=== PATIENT | female | born 1970 | race Caucasian/White ===

== ENCOUNTER 2021-04-25 17:27 | Inpatient (IN) | payer OTHER, SELFPAY ==
[2021-04-25] VITALS (16 sets, daily range): BP systolic 62–109; BP diastolic 23–66; PULSE 112–133; RESP 24–36; TEMP 40.4–41; O2SAT 88–94; BMI 95.7
--- NOTE | ~2021-04-25 | CT_ITS ---
EXAMINATION: CT brain wo con DATE: 04/25/2021 18:54 INDICATION: Cardiac arrest TECHNIQUE: Computed tomography (CT) of the head was performed without intravenous contrast. Sagittal and coronal reconstructions were performed. The mA was adjusted according to patient size. Iterative reconstruction technique was employed. The dose-length product was 756.67 mGy-cm. COMPARISON: None FINDINGS: No acute intracranial hemorrhage or abnormal extra axial fluid collection. Ventricles are normal and symmetric. There appears to be edema at the cerebellum and in the posterior aspect of the cerebellar hemispheres where there is effacement of the sulci and effacement of the prepontine cistern. There is also disproportionate relative enlargement of the lateral and third ventricles in comparison to the fourth ventricle which may be related to compression of the third ventricle. There is loss of olivia-wh ite matter differentiation in the bilateral parieto-occipital regions. Findings are concerning for in farct or anoxic brain injury involving primarily the posterior circulation. No abnormal masses identi fied. Posterior layering fluid in the bilateral maxillary and sphenoid sinuses. Bilateral orbits and mastoids are normal. Endotracheal tube and orogastric tube extends through the oropharynx. IMPRESSION: 1. Suggestion of cytotoxic edema in the posterior circulation vascular distribution involving the john paul ateral cerebellar hemispheres and lateral parieto-occipital lobes consistent with acute infarct which could be either embolic or hypotensive in etiology. This results in effacement of the CSF spaces in the posterior fossa surrounding the cerebellum and brainstem. Dr. Mari discussed these findings w karen Lopez at 7:05 PM. 2. The lateral and third ventricles are relatively enlarged relative to the fourth ventricle which un clear whether this is due to enlargement of the ventricles and the setting of obstructive hydrocephal us, compression of the fourth ventricle from the surrounding mass effect or combination thereof. Reviewed, dictated and finalized at location A. IMPRESSION: 1. Suggestion of cytotoxic edema in the posterior circulation vascular distribu tion involving the bilateral cerebellar hemispheres and lateral parieto-occipit al lobes consistent with acute infarct which could be either embolic or hypoten sive in etiology. This results in effacement of the CSF spaces in the posterior fossa surrounding the cerebellum and brainstem. Dr. Mari discussed these f indings with Dr. Lopez at 7:05 PM. 2. The lateral and third ventricles are relatively enlarged relative to the fou rth ventricle which unclear whether this is due to enlargement of the ventricle s and the setting of obstructive hydrocephalus, compression of the fourth ventr icle from the surrounding mass effect or combination thereof.
--- NOTE | ~2021-04-25 | XR_ITS ---
EXAMINATION: XR abdomen/kub 1V, XR chest ET placement DATE: 04/25/2021 18:08 INDICATION: Endotracheal tube placement Abdominal distention TECHNIQUE: 1. Supine AP view of the chest was obtained. 2. Supine AP view of the abdomen on 4 radiographs was obtained. COMPARISON: None. FINDINGS: Chest: Endotracheal tube tip 3.6 cm above the adelso. Right subclavian central venous catheter with distal t ip near the superior cavoatrial junction. Cardiomegaly with pulmonary vascular congestion. Bilateral perihilar and lower lung predominant airspace opacities. No pneumothorax or definitive pleural effusi on. ABDOMEN: Nasogastric tube tip in proximal side port in the body of the stomach. Right femoral central venous c atheter with distal tip projecting over the right common iliac vein. Left internal ureteral stent whi ch appears in expected position with loops formed in expected location of the left renal pelvis and b ladder. Gates catheter with temperature probe also projects over the region of the bladder. There is gas scattered throughout multiple loops of small bowel which are not frankly dilated. Some g as and stool also scattered throughout the colon. Instrumented posterior spinal fusion extending from the upper thoracic through the mid lumbar spine. There is also been a prior lower lumbar anterior sp inal fusion with graft cages and a couple levels. IMPRESSION: 1. Lines and tubes in expected positions as detailed above. 2. Cardiac megaly with pulmonary vascular congestion and bilateral perihilar and lower lung predomina nt opacities which could represent moderate congestive heart failure related pulmonary edema or pneum onia. 3. Multiple gas-filled but not frankly dilated loops of small bowel which could represent an ileus or early/partial small bowel obstruction. Reviewed, dictated and finalized at location A. IMPRESSION: 1. Lines and tubes in expected positions as detailed above. 2. Cardiac megaly with pulmonary vascular congestion and bilateral perihilar an d lower lung predominant opacities which could represent moderate congestive he art failure related pulmonary edema or pneumonia. 3. Multiple gas-filled but not frankly dilated loops of small bowel which could represent an ileus or early/partial small bowel obstruction.
--- NOTE | ~2021-04-25 | CT_ITS ---
EXAMINATION: CT chest abdomen pelvis wo con DATE: 04/25/2021 18:54 INDICATION: Septic shock. Abdominal distention. TECHNIQUE: Computed tomography (CT) of the chest, abdomen, and pelvis was performed without intraveno us contrast. Automated exposure control and iterative reconstruction technique were employed. The dos e-length product was 2928.22 mGy-cm. COMPARISON: None FINDINGS: CHEST CT: Endotracheal tube tip 5.1 cm above the level of the adelso. Right subclavian central venous catheter with distal tip at the superior cavoatrial junction. Patchy airspace opacities with air bronchograms throughout both lungs with the most extensive consolidation involving the majority of the left lower lobe. No pleural effusion or pneumothorax. Cardiomegaly. Mild atherosclerotic coronary artery calcifi c location. No pericardial effusion. Thoracic aorta is normal in caliber. No pathologically enlarged thoracic lymphadenopathy. Instrumented posterior spinal fusion extending from the upper thoracic to t he mid lumbar spine. ABDOMEN/PELVIS CT: Couple small calcified gallstones within the decompressed gallbladder. Liver, spleen, pancreas and bi lateral adrenal glands are normal. Bilateral nonobstructing renal calculi the largest measuring 1.8 c m at the right kidney. Severe left renal atrophy. Left internal ureteral stent with loops formed in t he left renal pelvis and along with a Gates catheter in the decompressed bladder. There are some scat tered oral contrast material throughout the normal caliber small bowel and colon. No bowel obstructio n. IUD within the anteverted atrophic uterus. Small amount of ascites scattered throughout the abdome n and pelvis. No pathologically enlarged abdominal or pelvic lymphadenopathy. Anterior spinal fusion with bone graft cages at L4-L5 and L5-S1. Right femoral central venous catheter with distal tip at t he proximal most right external iliac vein. Body wall edema at the lateral aspect of the pelvis and p roximal thighs. IMPRESSION: 1. Extensive diffuse bilateral lung disease which could represent pneumonia, pulmonary edema or combi nation thereof. 2. Cardiomegaly. 3. Small amount of nonspecific ascites. 4. Retained IUD within the atrophic uterus. Lines and tubes as detailed above. Reviewed, dictated and finalized at location A. IMPRESSION: 1. Extensive diffuse bilateral lung disease which could represent pneumonia, pu lmonary edema or combination thereof. 2. Cardiomegaly. 3. Small amount of nonspecific ascites. 4. Retained IUD within the atrophic uterus. Lines and tubes as detailed above.
[2021-04-25] MEDS: NOREPINEPHRINE 8 MG/D5W 250 ML 8 MG/250 ML BAG 93.75 MG IV CONT ×3 (15:30→20:47)
--- NOTE | 2021-04-25 15:45 | PM.DDS ---
Discharge Summary Date and Time Date of : 04/25/21 Time of : 21:48 Provider Pronounced By: rony dang Probable Cause of Probable Cause of : The patient was originally admitted with septic shock due to urinary tract infection. On the morning of her I suspect that she aspirated causing her cardiopulmonary arrest given her chest finding on imaging. She was successfully resuscitated though her neurologic exam was not promising and a subsequent head CT showed cytotoxic edema in the posterior circulation vascular distribution involving bilateral cerebellar hemispheres and lateral parietal occipital lobes consistent with acute infarct which may very well have been related to prolonged hypotension in addition to hypoxia. There ws also evidence of compression of the 4th ventricle likely causing obstructive hydrocephalus. Summary Hospital Course: This is a 51-year-old female with diabetes, hypothyroidism, sleep apnea, GERD, COPD, chronic respiratory failure on p.r.n. oxygen, and several other comorbidities who was transferred to the intensive care unit via helicopter from [facility] in [place], [place] for further treatment after cardiopulmonary arrest earlier this morning. She was admitted to the hospitalist on 04/22/2021 after presenting with weakness, found to have urinary tract infection as well as an acute kidney injury. She was started on IV antibiotics and IV fluid rehydration though over the course of the next couple of days her renal function continued to climb with a creatinine of 2.90 today. Her urine culture grew out pansensitive E coli and it looks like she was receiving both Zosyn and daptomycin and with further review of her chart looked like she was found to have MRSA colonization. Two evenings ago she reportedly have several episodes of emesis prompting a CT abdomen and pelvis which revealed fat stranding in the right upper quadrant as well as gaseous distension of the stomach. Late last evening and very early this morning the patient decompensated and was complaining of increasing shortness of breath for which she was started on a BiPAP. Shortly after 02:00 she became less responsive and a code blue was called at 02:19 at which time she was reportedly in asystole. After several rounds of CPR she was found to be in ventricular fibrillation and she was defibrillated with return of spontaneous circulation after a total of 14 minutes of CPR. She was intubated and an orogastric tube was inserted at that time which yielded 1000 mL of pink-tinged fluid. Due to lack of beds nearby we were contacted and had an ICU bed that did come available for the patient this afternoon. She arrived to our facility around 15:30 via helicopter and on arrival her blood pressures were in the 60s and 70s systolic despite the flight nurse starting epinephrine in addition to the norepinephrine that was already hanging. Vasopressin was added and despite this her maximum blood pressure was only 109/66. Her temperature was 105.4? F on arrival and despite of IV Tylenol and cooling packs it never dropped below 104.7? F. The patient arrived to the hospital on no sedation and her physical exam findings were consistent with possible anoxic brain injury and she was sent down for CT once more stable. Her brain CT showed suggestions of cytotoxic edema in the posterior circulation vascular distribution consistent with acute infarct which could be either embolic or hypertensive in etiology, resulting in effacement of the CSF spaces in the posterior fossa surrounding the cerebellum and brainstem as well as enlarged lateral and 3rd ventricles relative to the 4th ventricle which may be due to enlargement of the ventricles and in the setting of obstructive hydrocephalus, compression of the 4th ventricle from the surrounding mass effect, or combination there of. After several lengthy discussions with the patient's healthcare power of insurance defense attorney and sister, Marquita Whyte, the kaela
[2021-04-25 15:47] LABS: Alveolar/Arterial O2 Gradient 615.4 mmHg; Base Excess ABG -10.9 mEq/l (+/-2.0); Fractional Inspired Oxygen 100 %; HCO3 ABG 15.4 mEq/l (22.0-26.0); Oxyhemoglobin 83.7 % THb (90.0-100.0); PCO2 ABG 36.1 mmHg (35.0-45.0); PO2 ABG 61.5 mmHg (80.0-100.0); PO2 FiO2 Ratio Arterial Blood 0.62 %; Total Hemoglobin 8.4 g/dL (12.0-18.0)
[2021-04-25 15:48] LABS: Device VENTILATOR; Site Drawn RIGHT BRACHIAL; pH ABG 7.249 (7.350-7.450)
[2021-04-25 15:49] LABS: Arterial Blood Gas PEEP 8 cmH2O; Arterial Blood Gas Tidal Volume 400 ml; Arterial Blood Gas Vent Mode CMV; Arterial Blood Gas Ventilator rate 18 /MIN
[2021-04-25] MEDS: EPINEPHrine INJ 1 MG in DEXTROSE 5% IN WATER 250 ML 15.06 MG IV CONT (15:50)
[2021-04-25] MEDS: VASOPRESSIN INJ 100 UNITS in DEXTROSE 5% 95 ML IV CONT (15:50)
--- NOTE | 2021-04-25 17:00 | WPDPROCEDUR ---
Procedures Central Line Placement Right Femoral: Central Line Date: 04/25/21 Central Line Time: 17:00 Performed Emergently - Given emergent patient condition, temporal constraints may have precluded informed consent.: Yes Time Out Performed: Yes Patient Position: supine Patient placed on monitor/pulse ox: Yes Provider Prep: mask, sterile gown, sterile gloves, Max. sterile barrier precautions, cap and hand hygiene with conventional soap/water or alcohol based hand rub Central line prep: 2% Chlorhexidine scrub Local anesthesia used: lidocaine 1% Amount of anesthesia used (ml): 5 Sterile US Technique with sterile gel/sterile probe covers: Yes Central line lumen inserted: triple Macedonian: 7 Length (cm): 16 Post Procedure: sutured in place, good blood return, all ports aspirated, flushed, capped, transparent dressing, antimicrobial product, securement product and aseptic technique maintained throughout procedure Post procedure x-ray: other (n/a with femoral placement) Patient tolerated procedure: well Complications: none
[2021-04-25] MEDS: SODIUM BICARBONATE 8.4% 50 MEQ/50 ML SYRINGE 100 MEQ IV PUSH (17:12)
[2021-04-25] MEDS: FENTANYL 2,500MCG/NS250ML(*CRX 2,500 MCG/250 ML BAG 7.5 MCG (17:17)
[2021-04-25] MEDS: HYDROCORTISONE SODIUM SUCCINATE 100 MG/2 ML VIAL IV PUSH (17:20)
[2021-04-25] MEDS: SODIUM BICARBONATE 8.4% 150 MEQ in DEXTROSE 5% 1,000 ML 950 ML 75 MEQ IV CONT (17:23)
--- NOTE | 2021-04-25 18:14 | PM.IMHP ---
H&P: HPI History of Present Illness Date/Time: 04/25/21 15:45 [facility] Social History Social History Smoking packs per day: 1 Smoking cigarettes per day: 20.0 Years smoked: 14 Smoking pack-years: 14.00 Smoking status: Former smoker Alcohol intake: unknown Substance use: unknown Meds Home Medications and Allergies Home Medications Medication Instructions Recorded Confirmed Type L.acidophilus-Bifido.longum 1 cap PO DAILY 04/25/21 04/25/21 History [Probiotic Pearls] acetaminophen-codeine 2 tablet PO HS PRN 04/25/21 04/25/21 History [Tylenol-Codeine #3] albuterol sulfate 2 puff INHALATION Q4-6H PRN 04/25/21 04/25/21 History alprazolam [Xanax] 0.25 mg PO DAILY PRN 04/25/21 04/25/21 History cholecalciferol (vitamin D3) 125 mcg PO DAILY 04/25/21 04/25/21 History denosumab 60 mg SUBCUT [id number] 04/25/21 04/25/21 History diphenoxylate-atropine 1 tablet PO DAILY PRN 04/25/21 04/25/21 History epinephrine 0.3 mg SUBCUT ONCE PRN 04/25/21 04/25/21 History fenofibrate 160 mg PO DAILY 04/25/21 04/25/21 History ferrous sulfate 325 mg PO BID 04/25/21 04/25/21 History fluticasone propionate [Flonase] 2 spray INTRANASAL HS PRN 04/25/21 04/25/21 History furosemide [Lasix] 20 mg PO DAILY 04/25/21 04/25/21 History gabapentin [Neurontin] 600 mg PO QID PRN 04/25/21 04/25/21 History hydrocodone-acetaminophen [Gurnee] 2 tablet PO Q6H PRN 04/25/21 04/25/21 History insulin lispro [Admelog SoloStar 1 sliding scale dose SUBCUT 04/25/21 04/25/21 History U-100 Insulin] USEASDIRECTD levonorgestrel [Mirena] 1 insert INTRAUTERINE ONCE 04/25/21 04/25/21 History levothyroxine 50 mcg PO DAILY 04/25/21 04/25/21 History loperamide [Imodium A-D] 2 mg PO Q1H PRN 04/25/21 04/25/21 History omeprazole [Prilosec] 20 mg PO BID PRN 04/25/21 04/25/21 History ondansetron 8 mg PO Q8H PRN 04/25/21 04/25/21 History phenazopyridine [Azo Urinary Pain 200 mg PO BID PRN 04/25/21 04/25/21 History Relief] potassium chloride 10 meq PO DAILY 04/25/21 04/25/21 History tizanidine 8 mg PO BID PRN 04/25/21 04/25/21 History tizanidine 12 mg PO HS PRN 04/25/21 04/25/21 History Allergies Allergy/AdvReac Type Severity Reaction Status Date / Time apricot Allergy Hives Verified 04/25/21 18:35 cefepime Allergy Unknown Verified 04/25/21 18:35 hdez Allergy Unknown Verified 04/25/21 18:35 iodine Allergy Unknown Verified 04/25/21 18:36 latex Allergy Unknown Verified 04/25/21 18:36 liraglutide [From Victoza] Allergy Unknown Verified 04/25/21 18:39 meperidine [From Demerol] Allergy Vomiting Verified 04/25/21 18:36 nectarine Allergy Watery Eye Verified 04/25/21 18:37 peach Allergy Hives Verified 04/25/21 18:37 peanut Allergy Unknown Verified 04/25/21 18:38 plum Allergy Watery Eye Verified 04/25/21 18:38 vancomycin Allergy Vomiting Verified 04/25/21 18:39 walnut Allergy Unknown Verified 04/25/21 18:39 Vital Signs Vital Signs - 24 hr 04/25/21 15:53 04/25/21 17:15 04/25/21 17:17 Temperature Pulse Rate 126 H 122 H 122 H Respiratory Rate 28 H Pulse Oximetry 88 L 90 04/25/21 17:19 Temperature 104.7 F H Pulse Rate Respiratory Rate Pulse Oximetry
[2021-04-25 18:19] LABS: Hematocrit 29.4 % (37.0-47.0); Hemoglobin 8.6 g/dL (12.0-15.0); Mean Corpuscular HGB Conc 29.3 g/dl (32-36); Mean Corpuscular Hemoglobin 28.3 pg (26-34); Mean Corpuscular Volume 96.7 fl (80-100); Mean Platelet Volume 10.2 fl (7.4-10.4); Platelet Count Result 186 k/mm3 (150-375); Red Blood Count 3.04 M/mm3 (4.2-5.4)
[2021-04-25 18:29] LABS: INR 2.3; Prothrombin Time 24.7 Seconds (11.1-14.7)
[2021-04-25 18:32] LABS: Magnesium 2.4 mg/dL (1.6-2.3)
[2021-04-25 18:32] LABS: Creatine Kinase 547 U/L (30-135); Phosphorus 5.7 mg/dL (2.5-4.5)
[2021-04-25 18:40] LABS: Total Cells Counted 100
[2021-04-25 18:41] LABS: Band Neutrophils Percent 9 % (0-6); Eosinophils Absolute Manual 0.11 K/mm3 (0.02-0.5); Eosinophils Percent Manual 1 % (0-4); Lactic Acid Reflex 8.6 mmol/L (0.7-2.1); Lymphocytes Absolute Manual 5.28 K/mm3 (1.1-4.5); Lymphocytes Percent Manual 48 % (18-44); Metamyelocytes Percent 2 %; Monocytes Absolute Manual 0.33 K/mm3 (0.1-0.90); Monocytes Percent Manual 3 % (3-9); Neutrophils Absolute Manual 5.06 K/mm3 (1.7-7.2); Neutrophils Percent Manual 37 % (46-73); Nucleated Red Blood Cells 18 %; Platelet Estimate Adequate (Adequate); Smudge Cells PRESENT
[2021-04-25 18:42] LABS: Hypochromasia 1+ (NORMAL)
[2021-04-25 18:43] LABS: Atypical Lymphocytes Present
[2021-04-25 18:44] LABS: Alanine Aminotransferase 29 U/L (4-35); Albumin Level 2.3 g/dL (3.5-5.1); Alkaline Phosphatase 92 U/L (38-126); Anion Gap 21 mmol/L (8-16); Aspartate Amino Transferase 182 U/L (14-36); Bilirubin,Total 1.6 mg/dL (0.2-1.3); Blood Urea Nitrogen 62 mg/dL (7-17); Calcium 5.5 mg/dL (8.4-10.2); Carbon Dioxide 17 mmol/L (22-30); Chloride 91 mmol/L (98-107); Estimated Glomerular Filt Rate 15; Glucose 210 mg/dL (65-110); Lipase 21 U/L (23-300); Potassium 4.8 mmol/L (3.4-5.0); Sodium 129 mmol/L (137-145)
[2021-04-25] MEDS: Please add drug allergy info to patient profile. 1 EACH XX (19:59)
[2021-04-25] MEDS: EPINEPHrine INJ 1 MG in DEXTROSE 5% IN WATER 250 ML 150.6 MG IV CONT (20:16)
--- NOTE | 2021-04-25 20:25 | PC.NURSE ---
2020 Spoke with sister Marquita Brar . DARREN requests compassionate weaning.
[2021-04-25] MEDS: MINERAL OIL/WHITE PETROLATUM OINTMENT 1 APPLIC EACH EYE (20:47)
--- NOTE | 2021-04-25 20:52 | PC.NURSE ---
addendum to previous note: sister provided home information in preparation of expiration. [facility] [place], [address] [place] [id number].
[2021-04-25 21:16] LABS: Reflex Lactic Acid Yes or No Add Lactic
--- NOTE | 2021-04-25 22:05 | PM.SD2 ---
Same Day Admit/Disch: HPI History of Present Illness Chief complaint: Cardiopulmonary arrest/septic shock/UTI/ALVIN Narrative: This is a 51-year-old female with diabetes, hypothyroidism, sleep apnea, GERD, COPD, chronic respiratory failure on p.r.n. oxygen, and several other comorbidities who was transferred to the intensive care unit via helicopter from [facility] in [place], [place] for further treatment after cardiopulmonary arrest earlier this morning. She was admitted to the hospitalist on 04/22/2021 after presenting with weakness, found to have urinary tract infection as well as an acute kidney injury. She was started on IV antibiotics and IV fluid rehydration though over the course of the next couple of days her renal function continued to climb with a creatinine of 2.90 today. Her urine culture grew out pansensitive E coli and it looks like she was receiving both Zosyn and daptomycin and with further review of her chart looked like she was found to have MRSA colonization. Two evenings ago she reportedly have several episodes of emesis prompting a CT abdomen and pelvis which revealed fat stranding in the right upper quadrant as well as gaseous distension of the stomach. Late last evening and very early this morning the patient decompensated and was complaining of increasing shortness of breath for which she was started on a BiPAP. Shortly after 02:00 she became less responsive and a code blue was called at 02:19 at which time she was reportedly in asystole. After several rounds of CPR she was found to be in ventricular fibrillation and she was defibrillated with return of spontaneous circulation after a total of 14 minutes of CPR. She was intubated and an orogastric tube was inserted at that time which yielded 1000 mL of pink-tinged fluid. Due to lack of beds nearby we were contacted and had an ICU bed that did come available for the patient this afternoon. She arrived to our facility around 15:30 via helicopter and on arrival her blood pressures were in the 60s and 70s systolic despite the flight nurse starting epinephrine in addition to the norepinephrine that was already hanging. Vasopressin was added and despite this her maximum blood pressure was only 109/66. Her temperature was 105.4? F on arrival and despite of IV Tylenol and cooling packs it never dropped below 104.7? F. The patient arrived to the hospital on no sedation and her physical exam findings were consistent with possible anoxic brain injury and she was sent down for CT once more stable. Her brain CT showed suggestions of cytotoxic edema in the posterior circulation vascular distribution consistent with acute infarct which could be either embolic or hypertensive in etiology, resulting in effacement of the CSF spaces in the posterior fossa surrounding the cerebellum and brainstem as well as enlarged lateral and 3rd ventricles relative to the 4th ventricle which may be due to enlargement of the ventricles and in the setting of obstructive hydrocephalus, compression of the 4th ventricle from the surrounding mass effect, or combination there of. After several lengthy discussions with the patient's healthcare power of employment law attorney and sister, Marquita Whyte, the family decided to compassionately withdrawal care and the patient within approximately 5 minutes peacefully with myself and Miranda MEDEROS at bedside. [facility] Past Medical History Medical History (Updated 04/28/21 @ 01:57 by Nella Lopez PA-C) Anemia of chronic disease Anxiety Chronic kidney disease Chronic obstructive pulmonary disease Chronic pain syndrome Chronic respiratory failure Dwarfism Fatty liver Former smoker Gastroesophageal reflux disease Hyperlipidemia Hypothyroidism Kidney stones Lymphedema Morbid obesity Obstructive sleep apnea Osteoporosis Spinal stenosis Type 2 diabetes mellitus Surgical History Surgical History (Updated 04/28/21 @ 01:47 by Nella Lopez PA-C) History of cholecystectomy Histor
--- NOTE | 2021-04-25 22:50 | PC.NURSE ---
placed in [facility] notified
--- NOTE | 2021-04-26 00:39 | PC.NURSE ---
[id number] extubated per family request to compassionately wean. [id number] patient . [id number] telephoned sister Marquita - notified of expiration.
== END 2021-04-25 21:48 | disposition expired | DRG 720 ==
PROVIDERS: Internal Medicine; Physician Assistant; Admitting Provider Internal Medicine; Visit Provider Internal Medicine
DX: A41.9 Sepsis, unspecified organism (principal); R65.21 Severe sepsis with septic shock; N39.0 Urinary tract infection, site not specified; J96.10 Chronic respiratory failure, unspecified whether with hypoxia or hypercapnia; G91.1 Obstructive hydrocephalus; E11.9 Type 2 diabetes mellitus without complications; E03.9 Hypothyroidism, unspecified; N17.9 Acute kidney failure, unspecified; K21.9 Gastro-esophageal reflux disease without esophagitis; J44.9 Chronic obstructive pulmonary disease, unspecified; G47.30 Sleep apnea, unspecified; Z99.81 Dependence on supplemental oxygen
CPT/HCPCS: 36415; 36600; 70450; 71250; 74018; 74176; 80053; 82550; 82805; 83605; 83690; 83735; 84100; 85025; 85610; 85730; 87040; 87077; 87186; C1751; J0131; J0171; J1720; J3010; J7060; J7070